=== PATIENT | female | born 1940 | race Caucasian/White ===

== ENCOUNTER 2016-10-24 08:44 | Outpatient (CLI) | payer OTHER ==
[~2016-10-24 08:44] MED LIST: 0.9 % SODIUM CHLORIDE 50 ML IV SCH; 0.9 % SODIUM CHLORIDE 50 ML IV.SOLN IV ONE; ERTAPENEM SODIUM 1 GM VIAL ONE; ERTAPENEM SODIUM 1 GM in 0.9 % SODIUM CHLORIDE 50 ML IV SCH; HEPARIN SODIUM,PORCINE 30 UNITS INJ IV ONE; HEPARIN SODIUM,PORCINE 30 UNITS INJ IV SCH; SALINE FLUSH 10 ML DISP.SYRIN IVF ONE
== END 2016-10-24 08:45 ==
LOC: INF 08:44
PROVIDERS: ATTEND Surgery Plastic and Reconstructive Surgery
DX: T81.4XXA Infection following a procedure, initial encounter (principal)
CPT/HCPCS: 96365; J1335

== ENCOUNTER 2016-10-25 08:30 | Outpatient (CLI) | payer OTHER ==
[~2016-10-25 08:30] MED LIST changes: -0.9 % SODIUM CHLORIDE 50 ML IV SCH; -ERTAPENEM SODIUM 1 GM in 0.9 % SODIUM CHLORIDE 50 ML IV SCH; -HEPARIN SODIUM,PORCINE 30 UNITS INJ IV SCH
[2016-10-25] MEDS ORDERED: 0.9 % SODIUM CHLORIDE 50 ML IV ONE (08:46)
[2016-10-25] MEDS ORDERED: ERTAPENEM SODIUM 1 GM VIAL ONE (08:46)
== END 2016-10-25 08:33 ==
LOC: INF 08:30
PROVIDERS: ATTEND Surgery Plastic and Reconstructive Surgery
DX: T81.4XXA Infection following a procedure, initial encounter (principal)
CPT/HCPCS: J1335 ×2; 96365